=== PATIENT | male | born 1970 | race Caucasian/White ===

== ENCOUNTER 2017-02-25 18:04 | Emergency (ER) | payer OTHER ==
[~2017-02-25] VITALS: Ht 198.1 cm; Wt 137.4 kg
[2017-02-25 18:05] VITALS: BP 161/101
== END 2017-02-25 20:21 ==
LOC: ER 18:05
DX: S00.412A Abrasion of left ear, initial encounter (principal); W22.8XXA Striking against or struck by other objects, initial encounter; Y93.89 Activity, other specified; Y99.8 Other external cause status; Y92.89 Other specified places as the place of occurrence of the external cause